=== PATIENT | male | born 1955 | race Caucasian/White ===

== ENCOUNTER 2024-04-03 14:29 | Emergency (ER) | payer OTHER, SELFPAY ==
[2024-04-03 14:37] VITALS: BP 121/81; PULSE 94; RESP 16; TEMP 37.7; O2SAT 98
--- NOTE | 2024-04-03 14:50 | W.ED.GENAD ---
Discharge Plan Disposition Patient Disposition: Home Condition: Stable Discharge Details Clinical Impression: Bat bite wound, Encounter for vaccination ED Provider: Geno Hooks Home Meds and New Rx's Prescriptions: No Action No Known Home Meds Discharge Instructions Instructions: Animal Bites ED Additional Instructions: You were seen in the emergency department today for evaluation of a bat bite. In our department you had a full physical examination performed, the wound was cleaned, and you received your first round (day 0) of rabies vaccines and immunoglobulin. You also received your tetanus vaccine. You need to receive repeat doses of the rabies vaccine on the following days: Day 3: , 04/06 Day 7: Tuesday 04/10 Day 14: Tuesday 04/17 If you are not able to return to our hospital or infusion center for these vaccines, you can present to an alternative ER closer to you and tell them that you need the rabies vaccine. Please bring this paperwork if necessary. Thank you for allowing us to be part of your care. HPI General Mode of arrival: ambulatory. Date/Time Provider Initiated Documentation: 04/03/24 14:34. Limitations to Documentation: no limitations. Information obtained by: patient. HPI Narrative: MDM: This is a 69-year-old male patient without significant past medical history presenting for evaluation after a bat bite. My differential includes but is not limited to puncture wound, rabies exposure, at risk for tetanus. Reassuringly, this is an isolated injury and the patient is otherwise at his baseline and in his normal state of health. ED Course: After wound cleansing and care, the patient was provided with a tetanus booster as well as the day 0 rabies vaccine and immunoglobulin for an immunocompetent but unvaccinated patient. The bat was sent to [facility] for testing and they will follow-up with the results to determine if ongoing postexposure prophylaxis is indicated. Given the risk of infection, the small size of the wound, and the lack of concern for cosmesis on this area of the body, we will allow the wound to heal by secondary intention and no sutures were placed. The patient will require rabies vaccinations on day 3 (04/06), day 7 (04/10), and day 14 (04/17), and orders were placed for the infusion clinic for all 3 of these dates. At this time, the patient has had a full medical evaluation and is safe for discharge to home. They are hemodynamically stable, ambulatory, and tolerating PO. They are understanding of the follow-up plan and return precautions. They left our facility without incident. Geno Hooks MD HPI: This is a 69-year-old male patient without significant past medical history presenting for evaluation of a bat bite. 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 He did not sustain other injury, the bat was able to be captured, and was taken to [facility] for rabies testing. The patient reports that prior to this event he was in his normal state of health, he has no other concerns, has never been vaccinated for rabies in the past. Does not know when his last tetanus was. Exam: Gen: Awake and alert, in no apparent distress HEENT: Non-icteric sclera Neck: Supple Lungs: No apparent respiratory distress, normal respiratory effort. CV: Appears well perfused Abdomen: Non-distended MSK: Moves 4 extremities without apparent limitation in ROM Skin: Visualized skin without rashes, cyanosis. There is a small puncture wound to the dorsal aspect of the left forearm, hemostatic, with no surrounding swelling or ecchymosis Neuro: Normal Gait, no obvious focal deficits or facial asymmetry. Speaks in full, clear sentences. Psych: Appropriate for situation. Related Data Home Medications ?Medication ?Instructions ?Recorded ?Confirmed Unknown [No Known Home Meds] 04/03/24 04/03/24 General Stated Complaint: AnimalBite JALIL: 4 Course Vital Signs Vital signs: Vital Signs Temperature 37.7 C H 04/03/24 14:37 Pulse 94 H 04/03/24 14:37 Respiratory Rate 16 04/03/24 14:37 Blood Pressure 121/81 04/03/24 14:37 Pulse Oximetry 98 04/03/24 14:37 Temperature 37.7 C H 04/03/24 14:37 Pulse 94 H 04/03/24 14:37 Respiratory Rate 16 04/03/24 14:37 Respiratory Effort Normal 04/03/24 14:40 Blood Pressure 121/81 04/03/24 14:37 Pulse Oximetry 98 04/03/24 14:37 Pain Level 0 04/03/24 14:37 Medical Decision Making Quality:SDOH Health Related Social Needs: No Data to Display PFSH All Active Problems (Updated 04/03/24 @ 14:52 by Geno Hooks MD) Encounter for vaccination (Acute) Bat bite wound (Acute) Social History Smoking/Tobacco Use Status: Never Smoking risk assessment performed?: Yes Alcohol Intake: never Drug use: Never Substance use type: does not use Housing: house Do you feel safe at home: Yes Do you feel safe in your relationship?: Yes
--- NOTE | 2024-04-03 15:06 | NUR.NOTE ---
Faxed to Infusion Room: rabies vaccine physician order. day 3: 04/06/24 day 7: 04/10/24 day 14: 04/17/24. Nursing Note:
[2024-04-03] MEDS: Rabies vaccine (PCEC)/PF 2.5 UNITS/ML VIAL IM (15:10)
[2024-04-03] MEDS: Rabies Immune Globulin 1,500 UNIT/5 ML VIAL 1500 UNITS IM (15:10)
[2024-04-03] MEDS: Rabies Immune Globulin 300 UNIT/ML VIAL 132.94 UNIT IM (15:10)
--- NOTE | 2024-04-04 12:16 | NUR.NOTE ---
Infusion called stating that in the chart there is no demographic information in the chart in order call the patient to come in for his continuing rabies vaccinations. Nursing Note:
== END 2024-04-03 15:57 | disposition home or self-care (01) ==
LOC: ER 16:01
PROVIDERS: Emergency Provider Emergency Medicine; PCP Emergency Medicine
DX: S51.852A Open bite of left forearm, initial encounter (principal); Z20.3 Contact with and (suspected) exposure to rabies; Z23 Encounter for immunization; W55.81XA Bitten by other mammals, initial encounter; Y93.H3 Activity, building and construction; Y92.240 Courthouse as the place of occurrence of the external cause; Y99.0 Civilian activity done for income or pay
CPT/HCPCS: 90375; 90471; 90472; 90715; 96372; 99283; 90675